=== PATIENT | female | born 1955 | race Caucasian/White ===

== ENCOUNTER → 2020-04-20 13:51 | Outpatient (BNVA) | payer SELFPAY | PROVIDERS: Visit Provider Nurse Practitioner Family | DX: Z20.822 Contact with and (suspected) exposure to COVID-19 (principal) | CPT/HCPCS: 87635 ==

== ENCOUNTER → 2020-12-21 13:30 | Outpatient (BNVA) | payer OTHER, SELFPAY | PROVIDERS: Visit Provider Nurse Practitioner Family | DX: Z20.822 Contact with and (suspected) exposure to COVID-19 (principal) | CPT/HCPCS: 87426 ==

== ENCOUNTER → 2021-04-06 08:23 | Outpatient (BNVA) | payer MEDICARE, SELFPAY | PROVIDERS: Visit Provider Internal Medicine Rheumatology | DX: M06.9 Rheumatoid arthritis, unspecified (principal); M32.9 Systemic lupus erythematosus, unspecified; Z79.899 Other long term (current) drug therapy; Z71.85 Encounter for immunization safety counseling | CPT/HCPCS: 99204 ==

== ENCOUNTER 2021-04-29 14:50 | Outpatient (CLI) | payer MEDICARE, SELFPAY ==
--- NOTE | 2021-04-29 14:58 | MM_ITS ---
WS: [id number] BILATERAL DIGITAL SCREENING MAMMOGRAPHY WITH CAD CLINICAL INFORMATION: SCREENING HISTORY: Screening mammogram. No current complaints. COMPARISON: TECHNIQUE: Bilateral CC and MLO views. FINDINGS: Scattered fibroglandular densities bilaterally. Vascular calcifications. No suspicious focal mass, as ymmetry, calcifications, or architectural distortion. No evidence of malignancy. MM/[place] [id number] IMPRESSION: BI-RADS: 2-Benign FOLLOW UP: 1 Year Follow-up Recommend return to annual screening mammography.
== END 2021-04-29 14:51 | disposition home or self-care (01) ==
PROVIDERS: Visit Provider Family Medicine
DX: Z12.31 Encounter for screening mammogram for malignant neoplasm of breast (principal)
CPT/HCPCS: 77067

== ENCOUNTER → 2021-07-15 10:29 | Outpatient (BNVA) | payer MEDICARE, SELFPAY | PROVIDERS: Visit Provider Internal Medicine Rheumatology | DX: M05.79 Rheumatoid arthritis with rheumatoid factor of multiple sites without organ or systems involvement (principal); Z79.899 Other long term (current) drug therapy; L93.2 Other local lupus erythematosus; R76.8 Other specified abnormal immunological findings in serum; Z11.59 Encounter for screening for other viral diseases; Z71.85 Encounter for immunization safety counseling; Z11.1 Encounter for screening for respiratory tuberculosis | CPT/HCPCS: 99214 ==

== ENCOUNTER → 2021-07-15 11:51 | Outpatient (BNVA) | payer MEDICARE, SELFPAY | PROVIDERS: Visit Provider Internal Medicine Rheumatology | DX: M05.79 Rheumatoid arthritis with rheumatoid factor of multiple sites without organ or systems involvement (principal); Z79.899 Other long term (current) drug therapy; L93.2 Other local lupus erythematosus; R76.8 Other specified abnormal immunological findings in serum; Z11.59 Encounter for screening for other viral diseases; Z71.85 Encounter for immunization safety counseling | CPT/HCPCS: 80076; 81001; 82565; 82570; 84156; 85025; 85651; 86140; 86160; 86162; 86200; 86235; 86255; 86376; 86431; 86480; 86704; 86803; 87340; 99214 ==

== ENCOUNTER → 2021-10-20 12:45 | Outpatient (BNVA) | payer MEDICARE, SELFPAY | PROVIDERS: Visit Provider Internal Medicine Rheumatology | DX: M19.90 Unspecified osteoarthritis, unspecified site (principal); Z79.899 Other long term (current) drug therapy; Z71.85 Encounter for immunization safety counseling; R76.8 Other specified abnormal immunological findings in serum | CPT/HCPCS: 99214 ==

== ENCOUNTER 2021-10-21 09:31 | Outpatient (CLI) | payer MEDICARE, SELFPAY ==
[2021-10-21 10:13] LABS: Eosinophils # 0.2 10^3/uL (0.0-0.8); Eosinophils % 3.6 %; Hemoglobin 12.8 g/dL (11.5-15.3); Lymphocytes # 1.4 10^3/uL (0.8-4.8); Lymphocytes % 33.2 %; Mean Corpuscular HGB Conc 31.2 g/dL (30.0-36.0); Mean Corpuscular Hemoglobin 29.4 pg (28.0-34.0); Mean Platelet Volume 10.2 fL (7.4-10.4); Monocytes # 0.4 10^3/uL (0.2-0.9); Monocytes % 10.3 %; Neutrophils # 2.14 10^3/uL (1.8-7.7); Neutrophils % 51.4 %; Nucleated Red Blood Cells % 0 %; Platelet Count 186 10^3/cmm (130-400); Red Blood Count 4.36 10^6/uL (4.1-5.3); Red Cell Distribution Width 13.2 % (12.1-15.1); White Blood Count 4.2 10^3/uL (4.0-10.0)
[2021-10-21 10:44] LABS: Alanine Aminotransferase 13 U/L (0-33); Albumin Level 4.1 g/dL (3.5-5.2); Alkaline Phosphatase 89 U/L (35-105); Aspartate Amino Transferase 17 U/L (0-32); C Reactive Protein 4.3 mg/L (0.0-4.9); Globulin 2.5 g/dL (1.3-4.6); Glomerular Filtration Rate 55.6 mL/min (90-130); Total Bilirubin 0.3 mg/dL (0.15-1.2); Total Protein 6.6 g/dL (6.6-8.7)
== END 2021-10-21 09:32 | disposition home or self-care (01) ==
LOC: LAB 09:33
PROVIDERS: Visit Provider Internal Medicine Rheumatology
DX: M05.79 Rheumatoid arthritis with rheumatoid factor of multiple sites without organ or systems involvement (principal); Z79.899 Other long term (current) drug therapy
CPT/HCPCS: 36415; 80076; 82565; 85025; 86140

== ENCOUNTER 2021-12-08 12:04 | Emergency (ER) | payer MEDICARE, SELFPAY ==
--- NOTE | 2021-12-08 12:13 | ECG_ITS ---
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 Measurements Intervals [place] Rate: 69 P: 43 DE: 150 QRS: -14 QRSD: 98 T: 11 QT: 382 QTc: 410 Interpretive Statements SINUS RHYTHM POSSIBLE LEFT ATRIAL ENLARGEMENT [-0.1mV P-WAVE IN V1/V2] INCOMPLETE RIGHT BUNDLE BRANCH BLOCK No previous ECG available for comparison Electronically Signed On 12-09-2021 12:56:07 CDT by Devorah Boogie M.D. [id number]
[2021-12-08 12:18] VITALS: BP 137/90; PULSE 71; RESP 20; TEMP 36.6; O2SAT 96; BMI 30.5
--- NOTE | 2021-12-08 12:38 | XR_ITS ---
WS: [id number] PORTABLE CHEST HISTORY: chest pain COMPARISON: None available. Lungs are clear and well expanded. No pleural effusion or pneumothorax. Cardiac size: Normal. Mediastinum/Aorta: Normal mediastinum. No osseous abnormality seen. XR/XR chest 1V portable [id number] IMPRESSION: Unremarkable portable chest.
--- NOTE | 2021-12-08 12:40 | W.ED.CHESTPA ---
HPI - Chest Pain General: Chief Complaint: Chest Pain Stated Complaint: Chest pains, N/V Time Seen by Provider: 12/08/21 12:33 Source: patient Mode of arrival: ambulatory History of Present Illness: 66 female who presents tot [facility] ER with complaints of L sided chest and shoulder pain worse with movement and palpation. Nausea and vomitting. Not associated with exertion. No hx of CAD. Pt does ahve a hx of lupus. MD complaint: chest pain Onset (ago): day(s) (3) Timing of current episode: episodic Prior episodes: Yes Pain radiation: none Severity: moderate Quality: sharp Relieving factors: rest Exacerbating factors: palpation and movement Associated symptoms: Deny abdominal pain, diaphoresis, dyspnea, fever(s), leg edema, nausea, palpitations, sense of impending doom, syncope or vomiting Treatment prior to arrival: none Review of Systems Const: Denies: fever(s) or diaphoresis Card: Denies: palpitations or syncope Resp: Denies: dyspnea GI: Denies: abdominal pain, nausea or vomiting PFSH ED PFSH: Medical History (Updated 12/08/21 @ 16:41 by Tushar Mercedes DO) Cutaneous lupus erythematosus prior Hx? 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 Surgical History History of bilateral knee replacement History of hysterectomy still has 1 ovary History of tonsillectomy Family History Other CAD (coronary artery disease) Cancer Chronic kidney disease (CKD) Diabetes Family history of premature coronary artery disease Hypertension Lung disease Lupus Rheumatoid arthritis Denies family history of Stroke Social History Smoking and tobacco status: never smoked Alcohol intake: never Course Vital Signs: Vital signs: Vital Signs Temperature 98 F 12/08/21 12:18 Pulse Rate 71 12/08/21 12:18 Respiratory Rate 16 12/08/21 13:24 Blood Pressure 137/90 12/08/21 12:18 Pulse Oximetry 96 12/08/21 12:18 Oxygen Delivery Me thod 12/08/21 12:18 MDM - Chest Pain Medical Decision Making EKG and cardiac enzymes negative. Hold prednisone 5 mg daily prednisone burst taper. Follow up with your PCP in 1 wk if not improving. Medical Records I reviewed the patient's medical records. Lab Data I reviewed the patient's lab results. : 12/08/21 13:13 12/08/21 13:13 Radiology Impressions Chest X-Ray 12/08/21 12:38 IMPRESSION: Unremarkable portable chest. Laboratory Results WBC 5.6 10^3/uL (4.0-10.0) 12/08/21 13:13 RBC 4.66 10^6/uL (4.1-5.3) 12/08/21 13:13 Hgb 13.7 g/dL (11.5-15.3) 12/08/21 13:13 Hct 41.4 % (37.0-47.0) 12/08/21 13:13 MCV 88.8 fl (81-99) 12/08/21 13:13 MCH 29.4 pg (28.0-34.0) 12/08/21 13:13 MCHC 33.1 g/dL (30.0-36.0) 12/08/21 13:13 RDW 13.3 % (12.1-15.1) 12/08/21 13:13 Plt Count 182 10^3/cmm (130-400) 12/08/21 13:13 MPV 10.1 fL (7.4-10.4) 12/08/21 13:13 Neut % (Auto) 78.1 % 12/08/21 13:13 Lymph % (Auto) 12.6 % 12/08/21 13:13 [place] % (Auto) 7.5 % 12/08/21 13:13 Eos % (Auto) 0.7 % 12/08/21 13:13 Baso % (Auto) 0.4 % 12/08/21 13:13 Neut # (Auto) 4.35 10^3/uL (1.8-7.7) 12/08/21 13:13 Lymph # (Auto) 0.7 10^3/uL (0.8-4.8) L 12/08/21 13:13 [place] # (Auto) 0.4 10^3/uL (0.2-0.9) 12/08/21 13:13 Eos # (Auto) 0.0 10^3/uL (0.0-0.8) 12/08/21 13:13 Baso # (Auto) 0.0 10^3/uL (0.0-0.1) 12/08/21 13:13 Nucleated RBC % (auto) 0 % 12/08/21 13:13 Nucleated RBCs # 0.0 /100WBC 12/08/21 13:13 Sodium 136 mmol/L (136-145) 12/08/21 13:13 Potassium 3.3 mmol/L (3.5-5.1) L 12/08/21 13:13 Chloride 97 mmol/L (98-107) L 12/08/21 13:13 Carbon Dioxide 26 mmol/L (22-29) 12/08/21 13:13 Anion Gap 16.3 (5-19) 12/08/21 13:13 BUN 18 mg/dL (8-23) 12/08/21 13:13 Creatinine 1.2 mg/dL (0.5-0.9) H 12/08/21 13:13 GFR Calculation 45.1 mL/min (90-130) L 12/08/21 13:13 Glucose 100 mg/dL (65-115) 12/08/21 13:13 Calculated Osmolality 284 mOsm/kg (285-295) L 12/08/21 13:13 Calcium 9.2 mg/dL (8.5-10.5) 12/08/21 13:13 Total Bilirubin 0.4 mg/dL (0.15-1.2) 12/08/21 13:13 AST 28 U/L (0-32) 12/08/21 13:13 ALT 25 U/L (0-33) 12/08/21 13:13 Alkaline Phosphatase 78 U/L (35-105) 12/08/21 13:13 Troponin T Baseline 8 ng/L (0-10) 12/08/21 13:13 Troponin T 120 Minute 6.00 ng/L (0-10) 12/08/21 15:22 Total Protein 7.2 g/dL (6.6-8.7) 12/08/21 13:13 Albumin 4.3 g/dL (3.5-5.2) 12/08/21 13:13 Globulin 2.9 g/dL (1.3-4.6) 12/08/21 13:13 Discharge Plan Discharge Patient Disposition: Home Clinical Impression: Seropositive rheumatoid arthritis of multiple sites Condition: Stable Prescriptions: New prednisone 20 mg tablet 20 mg PO TID Qty: 15 0RF Rx Instructions: 1 p.o. 3 times daily x3 days, 1 p.o. twice daily x2 days, 1 p.o. daily x2 days Held prednisone 5 mg tablet See Rx Instructions .ROUTE .COMPLEX Qty: 60 1RF Hold Instructions: Resume on 12/16/21. Dose Instruction: TAKE 1 TO 2 TABLETS BY MOUTH DAILY FOR 5 TO 7 DAYS NEEDED FOR JOINT PAIN OR FLARE Rx Instructions: TAKE 1 TO 2 TABLETS BY MOUTH DAILY FOR 5 TO 7 DAYS NEEDED FOR JOINT PAIN OR FLARE No Action lisinopril 10 mg tablet 10 - 20 mg PO DAILY aspirin [Adult Aspirin Regimen] 81 mg tablet,delayed release (DR/EC) 81 mg PO DAILY sertraline 25 mg tablet 25 mg PO DAILY ibuprofen 800 mg tablet 800 mg PO TID PRN (Reason: Pain) prednisone 20 mg tablet See Rx Instructions PO .COMPLEX PRN (Reason: joint pain flare) Qty: 30 1RF Rx Instructions: take 1 daily for 3-7 days PRN joint pain flare PO PRN; triamterene-hydrochlorothiazid 75-50 mg Tablet 1 tab PO DAILY albuterol sulfate 90 mcg/actuation Hfa Aerosol Inhaler 2 puff INHALATION Q4H PRN (Reason: Shortness Of Breath) leflunomide 10 mg tablet 10 mg PO DAILY Discharge Orders: Discharge ED (Routine); Ordered 12/08/21 Ordered By: Tushar Mercedes Discharge Diet: Usual diet Discharge Activity: Increase activity as tolerated Patient Instructions: Opioid Safety, Pain Management Activity Restrictions/Additional Instructions: Hold prednisone 5 mg daily and take the prednisone burst and taper and then resume prednisone of 5 mg daily. 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
[2021-12-08 13:21] LABS: Basophils % 0.4 %; Eosinophils % 0.7 %; Hematocrit 41.4 % (37.0-47.0); Hemoglobin 13.7 g/dL (11.5-15.3); Lymphocytes # 0.7 10^3/uL (0.8-4.8); Lymphocytes % 12.6 %; Mean Corpuscular HGB Conc 33.1 g/dL (30.0-36.0); Mean Corpuscular Hemoglobin 29.4 pg (28.0-34.0); Mean Corpuscular Volume 88.8 fl (81-99); Mean Platelet Volume 10.1 fL (7.4-10.4); Monocytes # 0.4 10^3/uL (0.2-0.9); Monocytes % 7.5 %; Neutrophils # 4.35 10^3/uL (1.8-7.7); Neutrophils % 78.1 %; Nucleated Red Blood Cells % 0 %; Platelet Count 182 10^3/cmm (130-400); Red Blood Count 4.66 10^6/uL (4.1-5.3); Red Cell Distribution Width 13.3 % (12.1-15.1); White Blood Count 5.6 10^3/uL (4.0-10.0)
[2021-12-08] MEDS: dexamethasone 10 mg/mL INJ IM (13:23)
[2021-12-08 13:24] VITALS: RESP 16
[2021-12-08] MEDS: morphine 4 mg/mL SDV 1 mL IVP (13:24)
[2021-12-08 13:44] LABS: Alanine Aminotransferase 25 U/L (0-33); Albumin Level 4.3 g/dL (3.5-5.2); Alkaline Phosphatase 78 U/L (35-105); Anion Gap 16.3 (5-19); Aspartate Amino Transferase 28 U/L (0-32); Blood Urea Nitrogen 18 mg/dL (8-23); Calcium 9.2 mg/dL (8.5-10.5); Carbon Dioxide 26 mmol/L (22-29); Chloride 97 mmol/L (98-107); Globulin 2.9 g/dL (1.3-4.6); Glomerular Filtration Rate 45.1 mL/min (90-130); Glucose 100 mg/dL (65-115); Osmolality Calculated 284 mOsm/kg (285-295); Potassium 3.3 mmol/L (3.5-5.1); Sodium 136 mmol/L (136-145); Total Bilirubin 0.4 mg/dL (0.15-1.2); Total Protein 7.2 g/dL (6.6-8.7)
[2021-12-08 13:46] LABS: Troponin(5th) Baseline 8 ng/L (0-10)
[2021-12-08 14:37] VITALS: BP 139/89; PULSE 87; RESP 16
[2021-12-08 15:52] VITALS: BP 124/62
--- NOTE | 2021-12-08 16:13 | ECG_ITS ---
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 Measurements Intervals [place] Rate: 58 P: 48 NM: 160 QRS: -3 QRSD: 105 T: 34 QT: 434 QTc: 427 Interpretive Statements SINUS BRADYCARDIA INCOMPLETE RIGHT BUNDLE BRANCH BLOCK [90+ ms QRS DURATION, TERMINAL R IN V1/V2, 40+ ms S IN I/aVL/V4/V5/V6] Compared to ECG 12/08/2021 12:13:24 Sinus rhythm no longer present Electronically Signed On 12-09-2021 13:00:33 CDT by Devorah Boogie M.D. [id number]
[2021-12-08 16:52] VITALS: BP 120/58
[2021-12-08 17:05] VITALS: BP 122/70; PULSE 87
== END 2021-12-08 17:07 | disposition home or self-care (01) ==
PROVIDERS: Emergency Provider Family Medicine
DX: M05.9 Rheumatoid arthritis with rheumatoid factor, unspecified (principal); Z79.82 Long term (current) use of aspirin; L93.2 Other local lupus erythematosus
CPT/HCPCS: 36415; 71045; 80053; 84484; 85025; 93005; 96372; 96374; 99285; J1100; J2270

== ENCOUNTER → 2021-12-29 14:53 | Outpatient (BNVA) | payer MEDICARE, SELFPAY | PROVIDERS: PCP Family Medicine; Visit Provider Internal Medicine Rheumatology | DX: N39.0 Urinary tract infection, site not specified (principal); M05.79 Rheumatoid arthritis with rheumatoid factor of multiple sites without organ or systems involvement; Z79.899 Other long term (current) drug therapy; L93.2 Other local lupus erythematosus; R76.8 Other specified abnormal immunological findings in serum; Z71.85 Encounter for immunization safety counseling | CPT/HCPCS: 36415; 81001; 82565; 84132; 87077; 87086; 87186 ==

== ENCOUNTER 2022-04-08 15:21 | Outpatient (CLI) | payer MEDICARE, SELFPAY ==
--- NOTE | 2022-04-08 15:43 | XR_ITS ---
WS: [id number] XR knee LT 3V* [id number] REASON FOR EXAM: KNEE JOINT PAIN FINDINGS: Left knee arthroplasty. Femoral and tibial components of the prosthesis are in proper position and alignment. No findings for fracture, infection, or loosening. XR/XR knee LT 3V* [id number] IMPRESSION: Left knee arthroplasty without abnormality.
== END 2022-04-08 15:22 | disposition home or self-care (01) ==
LOC: RAD 15:30
PROVIDERS: PCP Family Medicine; Visit Provider Family Medicine
DX: M25.562 Pain in left knee (principal); Z96.652 Presence of left artificial knee joint
CPT/HCPCS: 73562

== ENCOUNTER → 2022-04-20 12:56 | Outpatient (BNVA) | payer MEDICARE, SELFPAY | PROVIDERS: PCP Family Medicine; Visit Provider Internal Medicine Rheumatology | DX: M05.79 Rheumatoid arthritis with rheumatoid factor of multiple sites without organ or systems involvement (principal); L93.2 Other local lupus erythematosus; Z79.899 Other long term (current) drug therapy; Z71.85 Encounter for immunization safety counseling; R76.8 Other specified abnormal immunological findings in serum; N39.0 Urinary tract infection, site not specified | CPT/HCPCS: 36415; 80076; 82565; 85025; 86140; 99214 ==

== ENCOUNTER 2022-04-26 14:07 | Emergency (ER) | payer MEDICARE, SELFPAY ==
[2022-04-26] VITALS (9 sets, daily range): BP systolic 114–139; BP diastolic 77–101; PULSE 75–94; RESP 13–22; TEMP 37.1; O2SAT 91–98; BMI 30.2
--- NOTE | 2022-04-26 14:37 | XR_ITS ---
WS: [id number] Portable AP upright chest, 04/26/2022 Clinical Data: dyspnea/cough Comparison: Portable chest, 12/08/2021 Findings: No nodules, masses or effusions are seen. The heart is normal. The pulmonary vascularity is not increased. No pneumonia or pneumothorax is seen. The aortic arch and descending thoracic aorta s how tortuosity. There are monitor leads on the chest wall. The patient's clothing obscure is minimal detail. XR/XR chest 1V portable [id number] Impression: Atherosclerosis.
--- NOTE | 2022-04-26 14:48 | ED_ITS ---
HPI - SOB/Dyspnea General: Chief Complaint: Shortness of Breath/Dyspnea Stated Complaint: SOB Time Seen by Provider: 04/26/22 14:36 Source: patient Mode of arrival: ambulatory History of Present Illness: HPI Narrative: 67-year-old female presents emergency room complaining of shortness of breath. Patient is concerned the methotrexate she is taking is giving her more difficulty with breathing. She is currently on prednisone he has a history of COPD. On arrival she is 99% on room air. As audible expiratory wheezing and some stridor. MD elicited complaint: shortness of breath and cough Onset (ago): hour(s) Timing: constant Severity: mild Exacerbating factors: nothing Relieving factors: nothing Associated symptoms: Reports cough; Deny abdominal pain, chest congestion, chest pain, diaphoresis, dizziness, extremity pain, fever(s), hemoptysis, lightheadedness, myalgias, nausea, orthopnea, palpitations, paresthesias, polydipsia, polyuria, rash, sense of impending doom, syncope or vomiting Review of Systems Const: Denies: fever(s), chills, fatigue, malaise or diaphoresis ENMT: Denies: throat pain, ear or mastoid pain, nasal discharge or nasal congestion Card: Denies: chest pain, palpitations, lightheadedness, syncope or orthopnea Resp: Reports: dyspnea, non-productive cough, wheezing and stridor; Denies: hemoptysis or chest congestion GI: Denies: abdominal pain, nausea or vomiting : Denies: flank pain, difficulty voiding, dysuria, urinary frequency or urinary urgency Musc: Denies: extremity pain Skin/Breast: Denies: rash or pruritus Neuro: Denies: dizziness Endo: Denies: polyuria or polydipsia PFSH ED PFSH: Medical History Cutaneous lupus erythematosus prior Hx? 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 UTI (urinary tract infection) Surgical History History of bilateral knee replacement History of hysterectomy still has 1 ovary History of tonsillectomy Family History Other CAD (coronary artery disease) Cancer Chronic kidney disease (CKD) Diabetes Family history of premature coronary artery disease Hypertension Lung disease Lupus Rheumatoid arthritis Denies family history of Stroke Social History Smoking and tobacco status: never smoked Alcohol intake: never Physical Exam Const: GENERAL APPEARANCE: cooperative and comfortable ORIENTATION/CONSCIOUSNESS: Yes awake, Yes oriented to person, Yes oriented to place and Yes oriented to time HENMT: COMMON NORMALS: normocephalic, atraumatic and hearing grossly normal bilaterally HEAD & SCALP: normocephalic and atraumatic Resp: COMMON NORMALS: normal respiratory effort, No retractions and No use of accessory muscles AUSCULTATION: wheezes Cardio: COMMON NORMALS: regular rate, regular rhythm and No murmurs present (Cardio) RATE: regular rate RHYTHM: regular rhythm GI: COMMON NORMALS: Soft to palpation and No hepatosplenomegaly present AUSCULTATION: Yes normoactive bowel sounds PALPATION: Yes Soft to palpation, No Tenderness to palpation present (GI), No Guarding due to palpation present (GI) and Yes No hepatosplenomegaly present Extremity: COMMON NORMALS: normal to inspection, capillary refill normal, no clubbing, cyanosis or edema, no calf tenderness and no pedal edema Neuro: SENSORIUM/ORIENTATION: Yes oriented to person, Yes oriented to place and Yes oriented to time Skin: COMMON NORMALS: no rashes or lesions noted GENERAL SKIN EXAM: no rashes or lesions noted Course Vital Signs: Vital signs: Vital Signs Temperature 98.7 F 04/26/22 14:14 Pulse Rate 79 04/26/22 17:35 Respiratory Rate 21 H 04/26/22 17:35 Blood Pressure 136/99 04/26/22 17:35 Pulse Oximetry 95 04/26/22 17:35 Oxygen Delivery Me thod 04/26/22 17:00 MDM - SOB/Dyspnea Medical Decision Making Improved after nebulizer treatments. We will hold her current prednisone put her on a prednisone taper starting tomorrow and then in 1 week when she finishes the [place] is on taper at the end of this taper resume her previous prednisone course. Labs imaging and EKG reviewed with the patient no acute changes are noted no acute ST changes. No significant findings on the chest x-ray there is no pneumonia masses effusions or pneumothorax. Continue to use albuterol if not improving recheck or follow-up with primary care. 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 Medical Records I reviewed the patient's medical records. Lab Data I reviewed the patient's lab results. 04/26/22 15:05 04/26/22 15:05 Labs/Radiology: Radiology Impressions Chest X-Ray 04/26/22 14:37 Impression: Atherosclerosis. Laboratory Results WBC 6.1 10^3/uL (4.0-10.0) 04/26/22 15:05 RBC 5.17 10^6/uL (4.1-5.3) 04/26/22 15:05 Hgb 14.8 g/dL (11.5-15.3) 04/26/22 15:05 Hct 45.5 % (37.0-47.0) 04/26/22 15:05 MCV 88.0 fl (81-99) 04/26/22 15:05 MCH 28.6 pg (28.0-34.0) 04/26/22 15:05 MCHC 32.5 g/dL (30.0-36.0) 04/26/22 15:05 RDW 13.6 % (12.1-15.1) 04/26/22 15:05 Plt Count 220 10^3/cmm (130-400) 04/26/22 15:05 MPV 10.2 fL (7.4-10.4) 04/26/22 15:05 Neut % (Auto) 79.9 % 04/26/22 15:05 Lymph % (Auto) 11.7 % 04/26/22 15:05 [place] % (Auto) 3.9 % 04/26/22 15:05 Eos % (Auto) 3.3 % 04/26/22 15:05 Baso % (Auto) 0.5 % 04/26/22 15:05 Neut # (Auto) 4.90 10^3/uL (1.8-7.7) 04/26/22 15:05 Lymph # (Auto) 0.7 10^3/uL (0.8-4.8) L 04/26/22 15:05 [place] # (Auto) 0.2 10^3/uL (0.2-0.9) 04/26/22 15:05 Eos # (Auto) 0.2 10^3/uL (0.0-0.8) 04/26/22 15:05 Baso # (Auto) 0.0 10^3/uL (0.0-0.1) 04/26/22 15:05 Nucleated RBC % (auto) 0 % 04/26/22 15:05 Nucleated RBCs # 0.0 /100WBC 04/26/22 15:05 Sodium 135 mmol/L (136-145) L 04/26/22 15:05 Potassium 4.3 mmol/L (3.5-5.1) 04/26/22 15:05 Chloride 99 mmol/L (98-107) 04/26/22 15:05 Carbon Dioxide 24 mmol/L (22-29) 04/26/22 15:05 Anion Gap 16.3 (5-19) 04/26/22 15:05 BUN 20 mg/dL (8-23) 04/26/22 15:05 Creatinine 1.1 mg/dL (0.5-0.9) H 04/26/22 15:05 GFR Calculation 49.7 mL/min (90-130) L 04/26/22 15:05 Glucose 116 mg/dL (65-115) H 04/26/22 15:05 Calculated Osmolality 284 mOsm/kg (285-295) L 04/26/22 15:05 Calcium 9.5 mg/dL (8.5-10.5) 04/26/22 15:05 Total Bilirubin 0.2 mg/dL (0.15-1.2) 04/26/22 15:05 AST 15 U/L (0-32) 04/26/22 15:05 ALT 14 U/L (0-33) 04/26/22 15:05 Alkaline Phosphatase 92 U/L (35-105) 04/26/22 15:05 Total Protein 7.3 g/dL (6.6-8.7) 04/26/22 15:05 Albumin 4.2 g/dL (3.5-5.2) 04/26/22 15:05 Globulin 3.1 g/dL (1.3-4.6) 04/26/22 15:05 Urine Color Yellow (Yellow) 04/26/22 16:20 Urine Appearance Clear (CLEAR) 04/26/22 16:20 Urine pH 7 (5-7) 04/26/22 16:20 Ur Specific [place] 1.010 (1.005-1.030) 04/26/22 16:20 Urine Protein Neg (Negative) 04/26/22 16:20 Urine Glucose (UA) Norm (Normal) 04/26/22 16:20 Urine Ketones Negative (Negative) 04/26/22 16:20 Urine Blood 2+ (Negative) H 04/26/22 16:20 Urine Nitrate Negative (Negative) 04/26/22 16:20 Urine Bilirubin Neg (Negative) 04/26/22 16:20 Urine Urobilinogen Neg mg/dL (Negative) 04/26/22 16:20 Ur Leukocyte Esterase Negative (Negative) 04/26/22 16:20 Urine RBC 0-4 /hpf (0-2) H 04/26/22 16:20 Urine WBC None /hpf (0-5) 04/26/22 16:20 Ur Squamous Epith Cells None /hpf (0-5) 04/26/22 16:20 Amorphous Sediment Not Reportable 04/26/22 16:20 Urine Bacteria None /hpf (NONE) 04/26/22 16:20 Discharge Plan Discharge Patient Disposition: Home Clinical Impression: Medication reaction Condition: Stable Prescriptions: New albuterol sulfate 90 mcg/actuation HFA aerosol inhaler 2 inh INHALATION Q4H PRN (Reason: shortness of breath or wheezing) Qty: 18 0RF Held prednisone 10 mg tablet See Rx Instructions PO .COMPLEX Qty: 90 1RF Hold Instructions: Resume on 05/02/22. Rx Instructions: 3 tabs daily x3days, then 2 tabs daily x3days, 1.5 tab daily x3 days then stay on 1 tab daily til next appt. orally; No Action lisinopril 10 mg tablet 10 - 20 mg PO DAILY aspirin [Adult Aspirin Regimen] 81 mg tablet,delayed release (DR/EC) 81 mg PO DAILY sertraline 25 mg tablet 25 mg PO DAILY ibuprofen 800 mg tablet 800 mg PO TID PRN (Reason: Pain) prednisone 20 mg tablet See Rx Instructions PO .COMPLEX PRN (Reason: joint pain flare) Qty: 30 1RF Rx Instructions: take 1 daily for 3-7 days PRN joint pain flare PO PRN; prednisone 5 mg tablet See Rx Instructions .ROUTE .COMPLEX Qty: 60 1RF Hold Instructions: Resume on 12/16/21. Dose Instruction: TAKE 1 TO 2 TABLETS BY MOUTH DAILY FOR 5 TO 7 DAYS NEEDED FOR JOINT PAIN OR FLARE Rx Instructions: TAKE 1 TO 2 TABLETS BY MOUTH DAILY FOR 5 TO 7 DAYS NEEDED FOR JOINT PAIN OR FLARE nitrofurantoin monohyd/m-cryst [Macrobid] 100 mg capsule 100 mg PO BID 7 Days Qty: 14 0RF Rx Instructions: must administer with a meal/food omeprazole 40 mg capsule,delayed release(DR/EC) See Rx Instructions .ROUTE .COMPLEX Qty: 90 0RF Dose Instruction: TAKE 1 CAPSULE BY MOUTH DAILY Rx Instructions: TAKE 1 CAPSULE BY MOUTH DAILY folic acid 1 mg tablet See Rx Instructions .ROUTE .COMPLEX Qty: 90 0RF Dose Instruction: TAKE 1 TABLET BY MOUTH DAILY Rx Instructions: TAKE 1 TABLET BY MOUTH DAILY triamterene-hydrochlorothiazid 75-50 mg Tablet 1 tab PO DAILY albuterol sulfate 90 mcg/actuation Hfa Aerosol Inhaler 2 puff INHALATION Q4H PRN (Reason: Shortness Of Breath) prednisone 20 mg tablet 20 mg PO TID Qty: 15 0RF Rx Instructions: 1 p.o. 3 times daily x3 days, 1 p.o. twice daily x2 days, 1 p.o. daily x2 days Discharge Orders: Discharge ED (Routine); Ordered 04/26/22 Ordered By: Tushar Mercedes Referrals: Herbert Pham MD [Primary Care Provider] - Patient Instructions: Opioid Safety, Pain Management Activity Restrictions/Additional Instructions: You are seen today for difficulty breathing. With the steroids and albuterol your breathing improved. Recommend you continue the steroid taper you were given here and then resume the 1 you have been on and 5 days after we complete the 1 you have today. Additionally use albuterol as needed. Take Benadryl 25 to 50 mg every 6-8 hours for the next 3 days. Return if you have further problems breathing. 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
[2022-04-26] MEDS: ipratropium-albuterol 3 mL Neb INHALATION ×2 (15:06→15:08)
[2022-04-26] MEDS: diphenhydrAMINE 50 mg/mL SDV 1mL IVP (15:10)
[2022-04-26 15:17] LABS: Basophils % 0.5 %; Eosinophils # 0.2 10^3/uL (0.0-0.8); Eosinophils % 3.3 %; Hematocrit 45.5 % (37.0-47.0); Hemoglobin 14.8 g/dL (11.5-15.3); Lymphocytes # 0.7 10^3/uL (0.8-4.8); Lymphocytes % 11.7 %; Mean Corpuscular HGB Conc 32.5 g/dL (30.0-36.0); Mean Corpuscular Hemoglobin 28.6 pg (28.0-34.0); Mean Platelet Volume 10.2 fL (7.4-10.4); Monocytes # 0.2 10^3/uL (0.2-0.9); Monocytes % 3.9 %; Neutrophils % 79.9 %; Nucleated Red Blood Cells % 0 %; Platelet Count 220 10^3/cmm (130-400); Red Blood Count 5.17 10^6/uL (4.1-5.3); Red Cell Distribution Width 13.6 % (12.1-15.1); White Blood Count 6.1 10^3/uL (4.0-10.0)
--- NOTE | 2022-04-26 15:19 | ECG_ITS ---
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 Measurements Intervals [place] Rate: 93 P: 61 DC: 135 QRS: 19 QRSD: 94 T: 62 QT: 364 QTc: 453 Interpretive Statements SINUS RHYTHM POSSIBLE LEFT ATRIAL ENLARGEMENT [-0.1mV P-WAVE IN V1/V2] INCOMPLETE RIGHT BUNDLE BRANCH BLOCK [90+ ms QRS DURATION, TERMINAL R IN V1/V2, 40+ ms S IN I/aVL/V4/V5/V6] Compared to ECG 12/08/2021 16:13:20 Sinus bradycardia no longer present Electronically Signed On 04-27-2022 14:11:03 SCENIC ARTIST by Karlie Dinh M.D. [id number]
[2022-04-26 15:39] LABS: Alanine Aminotransferase 14 U/L (0-33); Albumin Level 4.2 g/dL (3.5-5.2); Alkaline Phosphatase 92 U/L (35-105); Anion Gap 16.3 (5-19); Aspartate Amino Transferase 15 U/L (0-32); Blood Urea Nitrogen 20 mg/dL (8-23); Calcium 9.5 mg/dL (8.5-10.5); Carbon Dioxide 24 mmol/L (22-29); Chloride 99 mmol/L (98-107); Globulin 3.1 g/dL (1.3-4.6); Glomerular Filtration Rate 49.7 mL/min (90-130); Glucose 116 mg/dL (65-115); Osmolality Calculated 284 mOsm/kg (285-295); Potassium 4.3 mmol/L (3.5-5.1); Sodium 135 mmol/L (136-145); Total Bilirubin 0.2 mg/dL (0.15-1.2); Total Protein 7.3 g/dL (6.6-8.7)
[2022-04-26 17:01] LABS: Add Urine Culture? No; Add Urine Microscopic? YES; Bilirubin Urine Neg (Negative); Blood Urine 2+ (Negative); Glucose Urine UA Norm (Normal); Ketones Urine Negative (Negative); Leukocyte Esterase Urine Negative (Negative); Nitrate Urine Negative (Negative); Protein Urine Neg (Negative); RBC Urine 0-4 /hpf (0-2); Urine Appearance Clear (CLEAR); Urine Color Yellow (Yellow); Urobilinogen Urine Neg (Negative); pH Urine 7 (5-7)
== END 2022-04-26 17:36 | disposition home or self-care (01) ==
PROVIDERS: Emergency Provider Family Medicine; PCP Family Medicine
DX: T88.7XXA Unspecified adverse effect of drug or medicament, initial encounter (principal); T45.1X5A Adverse effect of antineoplastic and immunosuppressive drugs, initial encounter; Z79.82 Long term (current) use of aspirin; L93.2 Other local lupus erythematosus; J44.9 Chronic obstructive pulmonary disease, unspecified
CPT/HCPCS: 71045; 80053; 81001; 85025; 93005; 94640; 96374; 96375; 99285; J1200; J2930

== ENCOUNTER 2022-04-28 13:58 | Emergency (ER) | payer MEDICARE, SELFPAY ==
[2022-04-28] VITALS (63 sets, daily range): BP systolic 122–161; BP diastolic 85–116; PULSE 69–104; RESP 10–37; TEMP 36.7; O2SAT 87–96
--- NOTE | 2022-04-28 17:03 | W.ED.ALLEREA ---
Documented by User: Steffenquique ManzoDO 04/28/22 19:28 HPI - Allergic Reaction General: Chief complaint: Shortness of Breath/Dyspnea Stated complaint: SOB, cough Time Seen by Provider: 04/28/22 16:36 Source: patient and family Mode of arrival: ambulatory Limitations: no limitations History of Present Illness: HPI narrative: This patient returns to the emergency department. She apparently has had some difficulty breathing today. This apparently is similar to an occurrence she had yesterday. She thinks that it may be related to her methotrexate. She apparently has had reactions to previous rheumatological medications. She took a dose of methotrexate last week. She denies history of asthma, COPD. She does not smoke. She denies any other new or changing medication. She states she has been wheezing today despite using the metered-dose inhaler. She has not had any abdominal pain vomiting diarrhea skin rash etc. No other potential environmental or other exposures to allergens. Associated symptoms: Deny facial swelling, itching, lip swelling, rash or tongue swelling Review of Systems All/Imm: Denies: tongue swelling or facial swelling PFSH ED PFSH: Medical History Cutaneous lupus erythematosus prior Hx? 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 Patient states after her epinephrine IM she was feeling much better but that she started having wheezing again after her DuoNeb treatment. She is audibly wheezing upon my arrival to her room. Not clear as to why she had a rebound. I think we need to do a little more due diligence and to evaluate for any other potential causes of her shortness of breath at the same time of her another dose of epinephrine. Time: 18:34 Reevaluation #2: Patient still continues to have evidence of bronchospasm. We will go ahead and broaden her differential and work-up for other potential etiologies of her bronchospasm and same time while treating her with IV magnesium etc. Is being turned over to the overnight hospitalist for further work-up and disposition as appropriate. Time: 19:25 Vital Signs: Vital signs: Vital Signs Temperature 98.1 F 04/28/22 14:25 Pulse Rate 72 04/28/22 22:05 Respiratory Rate 21 H 04/28/22 22:05 Blood Pressure 139/95 04/28/22 22:15 Pulse Oximetry 91 04/28/22 22:05 Oxygen Delivery Me thod 04/28/22 19:10 MDM - Allergic Reaction Medical Decision Making Patient with questionable history of possible medication reaction presented to the emergency department again for bronchospasm and wheezing. Initially was treated with epinephrine with some improvement however symptoms recrudesced and therefore differential was broadened to include potential other etiologies for her bronchospasm in a patient who does not normally have a history of COPD asthma etc. Lab Data I reviewed the patient's lab results. 04/28/22 18:40 04/28/22 18:40 Radiology Impressions Chest X-Ray 04/28/22 18:32 IMPRESSION: Left lower lobe atelectasis versus minimal infiltrate. Chest CTA 04/28/22 19:41 IMPRESSION: 1. Negative for pulmonary embolus. 2. Ascending thoracic aorta is dilated at 3.8 cm. 3. Cardiomegaly. 4. Scattered prominent mediastinal lymph nodes measuring up to 10 mm short axis, nonspecific. 5. Bilateral dependent atelectasis. Laboratory Results WBC 10.0 10^3/uL (4.0-10.0) 04/28/22 18:40 RBC 5.02 10^6/uL (4.1-5.3) 04/28/22 18:40 Hgb 14.7 g/dL (11.5-15.3) 04/28/22 18:40 Hct 44.2 % (37.0-47.0) 04/28/22 18:40 MCV 88.0 fl (81-99) 04/28/22 18:40 MCH 29.3 pg (28.0-34.0) 04/28/22 18:40 MCHC 33.3 g/dL (30.0-36.0) 04/28/22 18:40 RDW 14.1 % (12.1-15.1) 04/28/22 18:40 Plt Count 212 10^3/cmm (130-400) 04/28/22 18:40 MPV 10.1 fL (7.4-10.4) 04/28/22 18:40 Neut % (Auto) 82.7 % 04/28/22 18:40 Lymph % (Auto) 11.9 % 04/28/22 18:40 [place] % (Auto) 4.1 % 04/28/22 18:40 Eos % (Auto) 0.0 % 04/28/22 18:40 Baso % (Auto) 0.4 % 04/28/22 18:40 Neut # (Auto) 8.29 10^3/uL (1.8-7.7) H 04/28/22 18:40 Lymph # (Auto) 1.2 10^3/uL (0.8-4.8) 04/28/22 18:40 [place] # (Auto) 0.4 10^3/uL (0.2-0.9) 04/28/22 18:40 Eos # (Auto) 0.0 10^3/uL (0.0-0.8) 04/28/22 18:40 Baso # (Auto) 0.0 10^3/uL (0.0-0.1) 04/28/22 18:40 Nucleated RBC % (auto) 0 % 04/28/22 18:40 Nucleated RBCs # 0.0 /100WBC 04/28/22 18:40 D-Dimer 1.84 ug/mIFEU (0-0.59) H 04/28/22 18:40 Sodium 134 mmol/L (136-145) L 04/28/22 18:40 Potassium 4.5 mmol/L (3.5-5.1) 04/28/22 18:40 Chloride 95 mmol/L (98-107) L 04/28/22 18:40 Carbon Dioxide 22 mmol/L (22-29) 04/28/22 18:40 Anion Gap 21.5 (5-19) H 04/28/22 18:40 BUN 23 mg/dL (8-23) 04/28/22 18:40 Creatinine 1.0 mg/dL (0.5-0.9) H 04/28/22 18:40 GFR Calculation 55.5 mL/min (90-130) L 04/28/22 18:40 Glucose 106 mg/dL (65-115) 04/28/22 18:40 Calculated Osmolality 282 mOsm/kg (285-295) L 04/28/22 18:40 Calcium 9.8 mg/dL (8.5-10.5) 04/28/22 18:40 Total Bilirubin 0.3 mg/dL (0.15-1.2) 04/28/22 18:40 AST 21 U/L (0-32) 04/28/22 18:40 ALT 16 U/L (0-33) 04/28/22 18:40 Alkaline Phosphatase 80 U/L (35-105) 04/28/22 18:40 Troponin T Baseline 6 ng/L (0-10) 04/28/22 18:40 Troponin T 120 Minute 6.00 ng/L (0-10) 04/28/22 21:21 Delta Troponin T 0 ABS# (0-10) 04/28/22 21:21 NT-Pro-B Natriuret Pep 40 pg/mL (0-125) 04/28/22 18:40 Total Protein 7.1 g/dL (6.6-8.7) 04/28/22 18:40 Albumin 4.3 g/dL (3.5-5.2) 04/28/22 18:40 Globulin 2.8 g/dL (1.3-4.6) 04/28/22 18:40 EKG Data EKG 1: I personally reviewed and interpreted this EKG as follows: Interpretation: Contemporaneous review of EKG reveals ventricular rate of 81 bpm with normal RI interval, QRS duration, corrected QT interval. Loss of and R wave anteriorly suggestive of possible remote anterior infarction. No other acute ST-T wave changes noted at this time. Discharge Plan Discharge Patient Disposition: Home Clinical Impression: Dyspnea Condition: Stable Prescriptions: No Action lisinopril 10 mg tablet 10 - 20 mg PO DAILY aspirin [Adult Aspirin Regimen] 81 mg tablet,delayed release (DR/EC) 81 mg PO DAILY sertraline 25 mg tablet 25 mg PO DAILY ibuprofen 800 mg tablet 800 mg PO TID PRN (Reason: Pain) prednisone 20 mg tablet See Rx Instructions PO .COMPLEX PRN (Reason: joint pain flare) Qty: 30 1RF Rx Instructions: take 1 daily for 3-7 days PRN joint pain flare PO PRN; prednisone 10 mg tablet See Rx Instructions PO .COMPLEX Qty: 90 1RF Hold Instructions: Resume on 05/02/22. Rx Instructions: 3 tabs daily x3days, then 2 tabs daily x3days, 1.5 tab daily x3 days then stay on 1 tab daily til next appt. orally; prednisone 5 mg tablet See Rx Instructions .ROUTE .COMPLEX Qty: 60 1RF Hold Instructions: Resume on 12/16/21. Dose Instruction: TAKE 1 TO 2 TABLETS BY MOUTH DAILY FOR 5 TO 7 DAYS NEEDED FOR JOINT PAIN OR FLARE Rx Instructions: TAKE 1 TO 2 TABLETS BY MOUTH DAILY FOR 5 TO 7 DAYS NEEDED FOR JOINT PAIN OR FLARE nitrofurantoin monohyd/m-cryst [Macrobid] 100 mg capsule 100 mg PO BID 7 Days Qty: 14 0RF Rx Instructions: must administer with a meal/food omeprazole 40 mg capsule,delayed release(DR/EC) See Rx Instructions .ROUTE .COMPLEX Qty: 90 0RF Dose Instruction: TAKE 1 CAPSULE BY MOUTH DAILY Rx Instructions: TAKE 1 CAPSULE BY MOUTH DAILY folic acid 1 mg tablet See Rx Instructions .ROUTE .COMPLEX Qty: 90 0RF Dose Instruction: TAKE 1 TABLET BY MOUTH DAILY Rx Instructions: TAKE 1 TABLET BY MOUTH DAILY triamterene-hydrochlorothiazid 75-50 mg Tablet 1 tab PO DAILY albuterol sulfate 90 mcg/actuation Hfa Aerosol Inhaler 2 puff INHALATION Q4H PRN (Reason: Shortness Of Breath) prednisone 20 mg tablet 20 mg PO TID Qty: 15 0RF Rx Instructions: 1 p.o. 3 times daily x3 days, 1 p.o. twice daily x2 days, 1 p.o. daily x2 days prednisone 20 mg tablet 40 mg PO BID 5 Days Qty: 20 0RF albuterol sulfate 90 mcg/actuation HFA aerosol inhaler 2 inh INHALATION Q4H PRN (Reason: shortness of breath or wheezing) Qty: 18 0RF Discharge Orders: Discharge ED (Routine); Ordered 04/28/22 Ordered By: Tree Castro Referrals: Herbert Pham MD [Primary Care Provider] - 1-3 days Discharge Diet: Advance as tolerated Discharge Activity: Resume usual activity Patient Instructions: Dyspnea (ED) Coding Level of Care Code ED Masonry Inspector for Chg Fwd Documented by User: Tree Castro MD 04/28/22 22:23 HPI - Allergic Reaction General: Chief complaint: Shortness of Breath/Dyspnea Stated complaint: SOB, cough Time Seen by Provider: 04/28/22 16:36 PFSH ED PFSH: Medical History Cutaneous lupus erythematosus prior Hx? 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 UTI (urinary tract infection) Surgical History History of bilateral knee replacement History of hysterectomy still has 1 ovary History of tonsillectomy Family History Other CAD (coronary artery disease) Cancer Chronic kidney disease (CKD) Diabetes Family history of premature coronary artery disease Hypertension Lung disease Lupus Rheumatoid arthritis Denies family history of Stroke Social History Smoking and tobacco status: never smoked Alcohol intake: never Course Vital Signs: Vital signs: Vital Signs Temperature 98.1 F 04/28/22 14:25 Pulse Rate 72 04/28/22 22:05 Respiratory Rate 21 H 04/28/22 22:05 Blood Pressure 139/95 04/28/22 22:15 Pulse Oximetry 91 04/28/22 22:05 Oxygen Delivery Me thod 04/28/22 19:10 MDM - Allergic Reaction Medical Decision Making Patient with questionable history of possible medication reaction presented to the emergency department again for bronchospasm and wheezing. Initially was treated with epinephrine with some improvement however symptoms recrudesced and therefore differential was broadened to include potential other etiologies for her bronchospasm in a patient who does not normally have a history of COPD asthma etc. Patient presents here with dyspnea likely reactive airway disease possibly from her medication she feels much improved her oxygen is normal CTA is normal she is continue with steroids albuterol and follow-up with PCP and return if worsening. Lab Data 04/28/22 18:40 04/28/22 18:40 Radiology Impressions Chest X-Ray 04/28/22 18:32 IMPRESSION: Left lower lobe atelectasis versus minimal infiltrate. Chest CTA 04/28/22 19:41 IMPRESSION: 1. Negative for pulmonary embolus. 2. Ascending thoracic aorta is dilated at 3.8 cm. 3. Cardiomegaly. 4. Scattered prominent mediastinal lymph nodes measuring up to 10 mm short axis, nonspecific. 5. Bilateral dependent atelectasis. Laboratory Results WBC 10.0 10^3/uL (4.0-10.0) 04/28/22 18:40 RBC 5.02 10^6/uL (4.1-5.3) 04/28/22 18:40 Hgb 14.7 g/dL (11.5-15.3) 04/28/22 18:40 Hct 44.2 % (37.0-47.0) 04/28/22 18:40 MCV 88.0 fl (81-99) 04/28/22 18:40 MCH 29.3 pg (28.0-34.0) 04/28/22 18:40 MCHC 33.3 g/dL (30.0-36.0) 04/28/22 18:40 RDW 14.1 % (12.1-15.1) 04/28/22 18:40 Plt Count 212 10^3/cmm (130-400) 04/28/22 18:40 MPV 10.1 fL (7.4-10.4) 04/28/22 18:40 Neut % (Auto) 82.7 % 04/28/22 18:40 Lymph % (Auto) 11.9 % 04/28/22 18:40 [place] % (Auto) 4.1 % 04/28/22 18:40 Eos % (Auto) 0.0 % 04/28/22 18:40 Baso % (Auto) 0.4 % 04/28/22 18:40 Neut # (Auto) 8.29 10^3/uL (1.8-7.7) H 04/28/22 18:40 Lymph # (Auto) 1.2 10^3/uL (0.8-4.8) 04/28/22 18:40 [place] # (Auto) 0.4 10^3/uL (0.2-0.9) 04/28/22 18:40 Eos # (Auto) 0.0 10^3/uL (0.0-0.8) 04/28/22 18:40 Baso # (Auto) 0.0 10^3/uL (0.0-0.1) 04/28/22 18:40 Nucleated RBC % (auto) 0 % 04/28/22 18:40 Nucleated RBCs # 0.0 /100WBC 04/28/22 18:40 D-Dimer 1.84 ug/mIFEU (0-0.59) H 04/28/22 18:40 Sodium 134 mmol/L (136-145) L 04/28/22 18:40 Potassium 4.5 mmol/L (3.5-5.1) 04/28/22 18:40 Chloride 95 mmol/L (98-107) L 04/28/22 18:40 Carbon Dioxide 22 mmol/L (22-29) 04/28/22 18:40 Anion Gap 21.5 (5-19) H 04/28/22 18:40 BUN 23 mg/dL (8-23) 04/28/22 18:40 Creatinine 1.0 mg/dL (0.5-0.9) H 04/28/22 18:40 GFR Calculation 55.5 mL/min (90-130) L 04/28/22 18:40 Glucose 106 mg/dL (65-115) 04/28/22 18:40 Calculated Osmolality 282 mOsm/kg (285-295) L 04/28/22 18:40 Calcium 9.8 mg/dL (8.5-10.5) 04/28/22 18:40 Total Bilirubin 0.3 mg/dL (0.15-1.2) 04/28/22 18:40 AST 21 U/L (0-32) 04/28/22 18:40 ALT 16 U/L (0-33) 04/28/22 18:40 Alkaline Phosphatase 80 U/L (35-105) 04/28/22 18:40 Troponin T Baseline 6 ng/L (0-10) 04/28/22 18:40 Troponin T 120 Minute 6.00 ng/L (0-10) 04/28/22 21:21 Delta Troponin T 0 ABS# (0-10) 04/28/22 21:21 NT-Pro-B Natriuret Pep 40 pg/mL (0-125) 04/28/22 18:40 Total Protein 7.1 g/dL (6.6-8.7) 04/28/22 18:40 Albumin 4.3 g/dL (3.5-5.2) 04/28/22 18:40 Globulin 2.8 g/dL (1.3-4.6) 04/28/22 18:40 Discharge Plan Discharge Patient Disposition: Home Clinical Impression: Dyspnea Condition: Stable Prescriptions: No Action lisinopril 10 mg tablet 10 - 20 mg PO DAILY aspirin [Adult Aspirin Regimen] 81 mg tablet,delayed release (DR/EC) 81 mg PO DAILY sertraline 25 mg tablet 25 mg PO DAILY ibuprofen 800 mg tablet 800 mg PO TID PRN (Reason: Pain) prednisone 20 mg tablet See Rx Instructions PO .COMPLEX PRN (Reason: joint pain flare) Qty: 30 1RF Rx Instructions: take 1 daily for 3-7 days PRN joint pain flare PO PRN; prednisone 10 mg tablet See Rx Instructions PO .COMPLEX Qty: 90 1RF Hold Instructions: Resume on 05/02/22. Rx Instructions: 3 tabs daily x3days, then 2 tabs daily x3days, 1.5 tab daily x3 days then stay on 1 tab daily til next appt. orally; prednisone 5 mg tablet See Rx Instructions .ROUTE .COMPLEX Qty: 60 1RF Hold Instructions: Resume on 12/16/21. Dose Instruction: TAKE 1 TO 2 TABLETS BY MOUTH DAILY FOR 5 TO 7 DAYS NEEDED FOR JOINT PAIN OR FLARE Rx Instructions: TAKE 1 TO 2 TABLETS BY MOUTH DAILY FOR 5 TO 7 DAYS NEEDED FOR JOINT PAIN OR FLARE nitrofurantoin monohyd/m-cryst [Macrobid] 100 mg capsule 100 mg PO BID 7 Days Qty: 14 0RF Rx Instructions: must administer with a meal/food omeprazole 40 mg capsule,delayed release(DR/EC) See Rx Instructions .ROUTE .COMPLEX Qty: 90 0RF Dose Instruction: TAKE 1 CAPSULE BY MOUTH DAILY Rx Instructions: TAKE 1 CAPSULE BY MOUTH DAILY folic acid 1 mg tablet See Rx Instructions .ROUTE .COMPLEX Qty: 90 0RF Dose Instruction: TAKE 1 TABLET BY MOUTH DAILY Rx Instructions: TAKE 1 TABLET BY MOUTH DAILY triamterene-hydrochlorothiazid 75-50 mg Tablet 1 tab PO DAILY albuterol sulfate 90 mcg/actuation Hfa Aerosol Inhaler 2 puff INHALATION Q4H PRN (Reason: Shortness Of Breath) prednisone 20 mg tablet 20 mg PO TID Qty: 15 0RF Rx Instructions: 1 p.o. 3 times daily x3 days, 1 p.o. twice daily x2 days, 1 p.o. daily x2 days prednisone 20 mg tablet 40 mg PO BID 5 Days Qty: 20 0RF albuterol sulfate 90 mcg/actuation HFA aerosol inhaler 2 inh INHALATION Q4H PRN (Reason: shortness of breath or wheezing) Qty: 18 0RF Discharge Orders: Discharge ED (Routine); Ordered 04/28/22 Ordered By: Tree Castro Referrals: Herbert Pham MD [Primary Care Provider] - 1-3 days Discharge Diet: Advance as tolerated Discharge Activity: Resume usual activity Patient Instructions: Dyspnea (ED) Coding Level of Care Code ED Masonry Inspector for Liana Crowe
[2022-04-28] MEDS: sodium chloride 0.9% 1,000 ML 999 ML IV (17:08)
[2022-04-28] MEDS: EPINEPHrine 1 mg/mL INJ 0.3 MG IM ×2 (17:08→18:52)
[2022-04-28] MEDS: dexamethasone 10 mg/mL INJ IVP (17:08)
--- NOTE | 2022-04-28 17:16 | PC.NURSE ---
pt resting in bed - a&ox4. assessment completed. pt connected to monitor. 3 visitors at bedside. pt has audible wheezing.
[2022-04-28] MEDS: ipratropium-albuterol 3 mL Neb INHALATION (18:13)
--- NOTE | 2022-04-28 18:32 | XRR_ITS ---
PROCEDURE INFORMATION: Exam: XR Chest Exam date and time: 04/28/2022 6:37 PM Age: 67 years old Clinical indication: Shortness of breath; Additional info: SOB TECHNIQUE: Imaging protocol: Radiologic exam of the chest. Views: 1 view. COMPARISON: No relevant prior studies available. FINDINGS: Lungs: Left lower lobe atelectasis versus minimal infiltrate. Pleural spaces: Unremarkable. No pleural effusion. No pneumothorax. Heart/Mediastinum: Unremarkable. No cardiomegaly. Bones/joints: Unremarkable. XR/XR chest 1V portable [id number] IMPRESSION: Left lower lobe atelectasis versus minimal infiltrate.
--- NOTE | 2022-04-28 18:32 | ECG_ITS ---
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 Measurements Intervals [place] Rate: 81 P: 38 MA: 139 QRS: -6 QRSD: 93 T: 28 QT: 379 QTc: 442 Interpretive Statements SINUS RHYTHM POSSIBLE ANTERIOR MYOCARDIAL INFARCTION , PROBABLY OLD [30 ms Q WAVE IN V3/V4, OR R < 0.2 mV IN V4] No previous ECG available for comparison Electronically Signed On 04-29-2022 21:39:26 CLINICAL SCIENCE CONSULTANT by Karlie Dinh M.D. [email or web address] [email or web address].[address]/store/OM/[id number]
[2022-04-28 18:59] LABS: Basophils % 0.4 %; Hematocrit 44.2 % (37.0-47.0); Hemoglobin 14.7 g/dL (11.5-15.3); Lymphocytes # 1.2 10^3/uL (0.8-4.8); Lymphocytes % 11.9 %; Mean Corpuscular HGB Conc 33.3 g/dL (30.0-36.0); Mean Corpuscular Hemoglobin 29.3 pg (28.0-34.0); Mean Platelet Volume 10.1 fL (7.4-10.4); Monocytes # 0.4 10^3/uL (0.2-0.9); Monocytes % 4.1 %; Neutrophils # 8.29 10^3/uL (1.8-7.7); Neutrophils % 82.7 %; Nucleated Red Blood Cells % 0 %; Platelet Count 212 10^3/cmm (130-400); Red Blood Count 5.02 10^6/uL (4.1-5.3); Red Cell Distribution Width 14.1 % (12.1-15.1)
[2022-04-28 19:22] LABS: Troponin(5th) Baseline 6 ng/L (0-10)
[2022-04-28 19:30] LABS: Alanine Aminotransferase 16 U/L (0-33); Albumin Level 4.3 g/dL (3.5-5.2); Alkaline Phosphatase 80 U/L (35-105); Anion Gap 21.5 (5-19); Aspartate Amino Transferase 21 U/L (0-32); Blood Urea Nitrogen 23 mg/dL (8-23); Calcium 9.8 mg/dL (8.5-10.5); Carbon Dioxide 22 mmol/L (22-29); Chloride 95 mmol/L (98-107); Globulin 2.8 g/dL (1.3-4.6); Glomerular Filtration Rate 55.5 mL/min (90-130); Glucose 106 mg/dL (65-115); NT Pro B Type Natriuretic Pept 40 pg/mL (0-125); Osmolality Calculated 282 mOsm/kg (285-295); Potassium 4.5 mmol/L (3.5-5.1); Sodium 134 mmol/L (136-145); Total Bilirubin 0.3 mg/dL (0.15-1.2); Total Protein 7.1 g/dL (6.6-8.7)
[2022-04-28 19:37] LABS: D Dimer 1.84 ug/mIFEU (0-0.59)
--- NOTE | 2022-04-28 19:41 | CTR_ITS ---
PROCEDURE INFORMATION: Exam: CTA Chest With Contrast Exam date and time: 04/28/2022 9:08 PM Age: 67 years old Clinical indication: Abnormal findings; Abnormal diagnostic tests; Elevated d-dimer; Cough and shortness of breath and wheezing; Patient HX: Cough with audible wheezing and SOB. Elevated d dimer. TECHNIQUE: Imaging protocol: Computed tomographic angiography of the chest with contrast. 3D rendering (Not supervised by radiologist): MIP and/or 3D reconstructed images were created by the technologist. Radiation optimization: All CT scans at this facility use at least one of these dose optimization techniques: automated exposure control; mA and/or kV adjustment per patient size (includes targeted exams where dose is matched to clinical indication); or iterative reconstruction. Contrast material: OMNI 350; Contrast volume: 61 ml; Contrast route: INTRAVENOUS (IV); REPORTING DATA: Count of CT and Cardiac NM exams in prior 12 months: This patient has received 0 known CTs and 0 known cardiac nuclear medicine studies in the 12 months prior to the current study. COMPARISON: CR (CHEST, ) 04/28/2022 6:37 PM RADIATION DOSE METRICS: Total DLP (mGy-cm): 311.21 FINDINGS: Pulmonary arteries: Normal. No pulmonary emboli. Aorta: Ascending thoracic aorta is dilated at 3.8 cm. Lungs: Bilateral dependent atelectasis. Pleural spaces: Unremarkable. No pneumothorax. No pleural effusion. Heart: Cardiomegaly. Lymph nodes: Scattered prominent mediastinal lymph nodes measuring up to 10 mm short axis, nonspecific. Bones/joints: Unremarkable. No acute fracture. Soft tissues: Unremarkable. CT/CT angio chest PE protcl [id number] IMPRESSION: 1. Negative for pulmonary embolus. 2. Ascending thoracic aorta is dilated at 3.8 cm. 3. Cardiomegaly. 4. Scattered prominent mediastinal lymph nodes measuring up to 10 mm short axis, nonspecific. 5. Bilateral dependent atelectasis.
[2022-04-28] MEDS: magnesium sulfate premix 2 GM/50 ML PIGGYBACK IV (20:28)
--- NOTE | 2022-04-28 20:39 | ECG_ITS ---
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 Measurements Intervals [place] Rate: 77 P: 42 LA: 150 QRS: -9 QRSD: 94 T: 36 QT: 383 QTc: 436 Interpretive Statements SINUS RHYTHM MINIMAL VOLTAGE CRITERIA FOR LVH, CONSIDER NORMAL VARIANT [MEETS CRITERIA IN ONE OF: R(aVL), S(V1), R(V5), R(V5/V6)+S(V1)] POSSIBLE ANTERIOR MYOCARDIAL INFARCTION , PROBABLY OLD [30 ms Q WAVE IN V3/V4, OR R < 0.2 mV IN V4] Compared to ECG 04/28/2022 18:47:14 No significant changes Electronically Signed On 04-29-2022 21:39:41 RN ADMISSIONS by Karlie Dinh M.D. [email or web address]/store/[id number]
[2022-04-28] MEDS: diphenhydrAMINE 50 mg/mL SDV 1mL IVP (21:00)
[2022-04-28] MEDS: iohexol 350 mg/mL 500 mL Btl (per mL) IV (21:18)
[2022-04-28 22:16] LABS: Troponin 5 2HR Delta 0 ABS# (0-10)
== END 2022-04-28 22:15 | disposition home or self-care (01) ==
PROVIDERS: Emergency Medicine; Emergency Provider Emergency Medicine; PCP Family Medicine
DX: R06.00 Dyspnea, unspecified (principal); Z79.82 Long term (current) use of aspirin; L93.2 Other local lupus erythematosus
CPT/HCPCS: 71045; 71275; 80053; 83880; 84484; 85025; 85378; 93005; 94640; 96365; 96372; 96375; 99285; J0171; J1100; J1200; J2920; J3475; J7030; Q9967

== ENCOUNTER 2022-05-02 11:06 | Outpatient (CLI) | payer MEDICARE, SELFPAY ==
--- NOTE | 2022-05-02 11:19 | MM_ITS ---
WS: [id number] BILATERAL SCREENING DIGITAL TOMOSYNTHESIS MAMMOGRAM WITH CAD HISTORY: SCREENING COMPARISON: 04/29/2021, 02/19/2018 and 02/05/2018 Bilateral CC and MLO views with tomosynthesis and synthetic mammography submitted. Computer aided det ection analyzed. Breast composition: The breasts are heterogeneously dense, which may obscure small masses. No suspici ous masses, microcalcifications or architectural distortion. Long-term stability 6 mm asymmetry in th e superior anterior LEFT breast. Also noted on prior mammogram from 09/30/2015. MM/[place] [id number] IMPRESSION: BI-RADS: 2-Benign FOLLOW UP: 1 Year Follow-up
== END 2022-05-02 11:07 | disposition home or self-care (01) ==
LOC: RAD 11:11
PROVIDERS: PCP Family Medicine; Visit Provider Family Medicine
DX: Z12.31 Encounter for screening mammogram for malignant neoplasm of breast (principal)
CPT/HCPCS: 77063; 77067

== ENCOUNTER 2022-05-16 09:13 | Outpatient (CLI) | payer MEDICARE, SELFPAY | END 2022-05-16 09:14 | disposition home or self-care (01) | LOC: RAD 05-17 09:03 | PROVIDERS: PCP Family Medicine; Visit Provider Specialist | DX: M25.562 Pain in left knee (principal) | CPT/HCPCS: 73560; 73565 ==

== ENCOUNTER 2022-05-16 14:42 | Outpatient (CLI) | payer MEDICARE, SELFPAY | END 2022-05-16 14:43 | disposition home or self-care (01) | LOC: SPT 14:42 | PROVIDERS: PCP Family Medicine; Visit Provider Specialist | DX: Z46.89 Encounter for fitting and adjustment of other specified devices (principal); M25.562 Pain in left knee; Z96.653 Presence of artificial knee joint, bilateral | CPT/HCPCS: 97760; 99204; L1812 ==

== ENCOUNTER 2022-05-25 08:00 | Outpatient (CLI) | payer MEDICARE, SELFPAY ==
--- NOTE | 2022-05-25 08:06 | NM_ITS ---
WS: [id number] THREE-PHASE BONE SCAN HISTORY: left knee pain, bilateral knee replacements. COMPARISON: Radiographs 05/16/2022 Patient is is injected with 25.1 mCi Tc99m HDP intravenously. Immediate angiographic phase imaging is performed over the area of concern. Static blood pool imaging also performed. Two-hour whole-body sc intigrams performed in anterior and posterior projections. Additional large field of view imaging sub mitted as necessary. Angiographic and blood pool imaging is normal. There is no increased uptake. Normal symmetric appeara nce. Photopenic defects on the blood pool imaging from knee prostheses. There is some very mild increased uptake involving the LEFT knee around the patella. Small amount of increased uptake along the tibial plateau surfaces. This is bilateral. Mild increased uptake involvin g the LEFT lumbosacral region. Probably facet joint arthritis. Mild AC joint arthritis and glenohumer al joint arthritis. No rib lesions. Mild degenerative arthropathy in the LEFT midfoot. NM/NM bone 3 phase [id number] IMPRESSION: 1. No osteomyelitis or cellulitis involving either knee. 2. Mild increased uptake involving the LEFT patella. On recent radiograph scle rotic bone changes and narrowing of the patellofemoral joint space. Favor arthr itis. Additional mild increased uptake along the tibial plateau surfaces bilate rally. This can be seen with loosening. There is very slight lucency involving the RIGHT tibial plateau prosthesis. These changes can also be seen with recent placement of the prostheses. May be a normal response if these are more recent knee prostheses.
== END 2022-05-25 08:01 | disposition home or self-care (01) ==
LOC: RAD 08:02
PROVIDERS: PCP Family Medicine; Visit Provider Specialist
DX: M25.562 Pain in left knee (principal); Z96.653 Presence of artificial knee joint, bilateral
CPT/HCPCS: 78315; A9561

== ENCOUNTER → 2022-07-07 13:07 | Outpatient (BNVA) | payer MEDICARE, SELFPAY | PROVIDERS: PCP Family Medicine; Visit Provider Internal Medicine Rheumatology | DX: L93.2 Other local lupus erythematosus (principal); Z79.899 Other long term (current) drug therapy; M05.79 Rheumatoid arthritis with rheumatoid factor of multiple sites without organ or systems involvement; M79.673 Pain in unspecified foot; R76.8 Other specified abnormal immunological findings in serum; Z71.85 Encounter for immunization safety counseling; N39.0 Urinary tract infection, site not specified; M06.041 Rheumatoid arthritis without rheumatoid factor, right hand; M06.042 Rheumatoid arthritis without rheumatoid factor, left hand | CPT/HCPCS: 36415; 71046; 73630; 80076; 82565; 85025; 85651; 86140; 99214 ==

== ENCOUNTER → 2022-11-15 10:30 | Outpatient (BNVA) | payer MEDICARE, SELFPAY | PROVIDERS: PCP Family Medicine; Visit Provider Podiatrist Foot & Ankle Surgery | DX: Q66.222 Congenital metatarsus adductus, left foot; Q66.221 Congenital metatarsus adductus, right foot | CPT/HCPCS: 73630; 99203 ==

== ENCOUNTER → 2022-12-13 10:50 | Outpatient (BNVA) | payer MEDICARE, SELFPAY | PROVIDERS: PCP Family Medicine; Visit Provider Podiatrist Foot & Ankle Surgery | DX: Q66.221 Congenital metatarsus adductus, right foot; Q66.222 Congenital metatarsus adductus, left foot | CPT/HCPCS: 99213 ==

== ENCOUNTER 2022-12-15 13:17 | Outpatient (CLI) | payer MEDICARE, SELFPAY ==
--- NOTE | 2022-12-15 13:22 | XR_ITS ---
WS: [id number] SCREENING DEXA SCAN Scatter Lab CLINICAL INFORMATION: OSTEOPOROSIS SCREENING/ASYMPTOMATIC POSTMENOPAUSAL STATUS COMPARISON: None. FINDINGS: The L1-L4 bone mineral density measures 1.693 g/cm2. This corresponds to a T score score of 4.3 and Z score of 5.2. Left femoral neck bone mineral density measures 1.122 g/cm2. This corresponds to a T score of 0.9 and Z score of 1.7. Right femoral neck bone mineral density measures 1.110 g/cm2. This corresponds to a T score 0.8of and Z score of 1.6. Mean femoral neck bone mineral density measures 1.116 g/cm2. This corresponds to a T score of 0.9 and Z score of 1.6. IMPRESSION: Normal bone mineralization. Patient's FRAX calculated 10 year probability for major osteoporotic fracture is 12.1% and osteoporot ic hip fracture is 0.3%.
== END 2022-12-15 13:18 | disposition home or self-care (01) ==
LOC: RAD 13:18
PROVIDERS: PCP Family Medicine; Visit Provider Family Medicine
DX: Z78.0 Asymptomatic menopausal state (principal)
CPT/HCPCS: 77080

== ENCOUNTER 2023-01-18 11:36 | Outpatient (CLI) | payer MEDICARE, SELFPAY | END 2023-01-18 11:37 | disposition home or self-care (01) | LOC: SPT 11:36 | PROVIDERS: PCP Family Medicine; Visit Provider Podiatrist Foot & Ankle Surgery | DX: Z46.89 Encounter for fitting and adjustment of other specified devices (principal); M79.671 Pain in right foot; M79.672 Pain in left foot | CPT/HCPCS: 97760; L3030 ==

== ENCOUNTER → 2023-03-14 14:08 | Outpatient (BNVA) | payer MEDICARE, SELFPAY | PROVIDERS: PCP Family Medicine; Visit Provider Internal Medicine Rheumatology | DX: Z79.899 Other long term (current) drug therapy (principal); M05.79 Rheumatoid arthritis with rheumatoid factor of multiple sites without organ or systems involvement; L93.2 Other local lupus erythematosus; R76.8 Other specified abnormal immunological findings in serum; Z71.85 Encounter for immunization safety counseling; N39.0 Urinary tract infection, site not specified; M06.041 Rheumatoid arthritis without rheumatoid factor, right hand; M06.042 Rheumatoid arthritis without rheumatoid factor, left hand | CPT/HCPCS: 36415; 80076; 82565; 85025; 86140; 99214 ==

== ENCOUNTER 2023-03-29 20:00 | Outpatient (CLI) | payer MEDICARE, SELFPAY | END 2023-03-29 20:01 | disposition home or self-care (01) | LOC: SLEEP 03-30 02:36 | PROVIDERS: PCP Family Medicine; Visit Provider Family Medicine | DX: G47.33 Obstructive sleep apnea (adult) (pediatric) (principal); R09.02 Hypoxemia; R06.83 Snoring; G47.9 Sleep disorder, unspecified | CPT/HCPCS: 95810 ==

== ENCOUNTER 2023-05-08 09:13 | Outpatient (CLI) | payer MEDICARE, SELFPAY ==
--- NOTE | 2023-05-08 09:22 | MM_ITS ---
WS: [id number] BILATERAL SCREENING DIGITAL TOMOSYNTHESIS MAMMOGRAM WITH CAD HISTORY: SCREENING COMPARISON: 05/02/2022, 04/29/2021 Bilateral CC and MLO views with tomosynthesis and synthetic mammography submitted. Computer aided det ection analyzed. Breast composition: There are scattered areas of fibroglandular density. No suspicious masses, microc alcifications or architectural distortion. Benign arterial calcifications. IMPRESSION: MM/[place] [id number] BI-RADS: 2-Benign FOLLOW UP: 1 Year Follow-up
== END 2023-05-08 09:14 | disposition home or self-care (01) ==
LOC: RAD 09:14
PROVIDERS: PCP Family Medicine; Visit Provider Family Medicine
DX: Z12.31 Encounter for screening mammogram for malignant neoplasm of breast (principal)
CPT/HCPCS: 77063; 77067

== ENCOUNTER 2023-05-10 20:00 | Outpatient (CLI) | payer MEDICARE, SELFPAY | END 2023-05-10 20:01 | disposition home or self-care (01) | LOC: SLEEP 05-11 06:22 | PROVIDERS: PCP Family Medicine; Visit Provider Family Medicine | DX: G47.33 Obstructive sleep apnea (adult) (pediatric) (principal); G47.34 Idiopathic sleep related nonobstructive alveolar hypoventilation | CPT/HCPCS: 95811 ==

== ENCOUNTER 2023-06-15 11:57 | Outpatient (CLI) | payer MEDICARE, SELFPAY ==
--- NOTE | 2023-06-15 12:08 | XR_ITS ---
WS: [id number] Exam: XR shoulder LT min 2V* [id number] Date/Time of Exam: 06/15/2023 12:10 PM Reason For Exam: PAIN IN L SHOULDER No fracture or dislocation. Moderate DJD of the glenohumeral joint. Mild AC joint DJD. Normal soft ti ssues. IMPRESSION: 1. Degenerative changes. No fracture.
== END 2023-06-15 11:58 | disposition home or self-care (01) ==
LOC: RAD 11:59
PROVIDERS: PCP Family Medicine; Visit Provider Family Medicine
DX: M19.012 Primary osteoarthritis, left shoulder (principal); M25.512 Pain in left shoulder
CPT/HCPCS: 73030

== ENCOUNTER → 2023-10-10 08:31 | Outpatient (BNVA) | payer MEDICARE, SELFPAY | PROVIDERS: PCP Family Medicine; Visit Provider Podiatrist Foot & Ankle Surgery | DX: Q66.221 Congenital metatarsus adductus, right foot; Q66.222 Congenital metatarsus adductus, left foot | CPT/HCPCS: 99213 ==

== ENCOUNTER → 2023-10-31 08:26 | Outpatient (BNVA) | payer MEDICARE, SELFPAY | PROVIDERS: PCP Family Medicine; Visit Provider Podiatrist Foot & Ankle Surgery | DX: Q66.221 Congenital metatarsus adductus, right foot; Q66.222 Congenital metatarsus adductus, left foot | CPT/HCPCS: 99213 ==

== ENCOUNTER → 2023-12-11 08:35 | Outpatient (BNVA) | payer MEDICARE, SELFPAY | PROVIDERS: PCP Family Medicine; Visit Provider Podiatrist Foot & Ankle Surgery | DX: Q66.221 Congenital metatarsus adductus, right foot; Q66.222 Congenital metatarsus adductus, left foot | CPT/HCPCS: 99214 ==

== ENCOUNTER 2023-12-27 05:36 | Day surgery (SDC) | payer MEDICARE, SELFPAY ==
[2023-12-27] VITALS (16 sets, daily range): BP systolic 117–168; BP diastolic 72–93; PULSE 62–80; RESP 16–18; TEMP 36.1–36.6; O2SAT 91–99; BMI 32.2
--- NOTE | 2023-12-27 | XR_ITS ---
WS: [id number] Right foot, C-arm fluoroscopy views, 12/27/2023 Clinical Data: [facility] Comparison: Bilateral feet, 11/15/2022 Findings: Dr. Westfall fused the right second toe PIP joint with an orthopedic screw. XR/XR foot RT 2V [id number] Impression: Fusion of the right second toe PIP joint.
--- NOTE | 2023-12-27 06:19 | P.ANESASSM_ITS ---
Pre-Anesthetic Assessment Height/Weight: Height 5 ft 4 in Weight 188 lb Temp Pulse Resp BP Pulse Ox O2 Del Method 98 F 62 18 168/93 97 Room Air 12/27/23 06:06 12/27/23 06:06 12/27/23 06:06 12/27/23 06:06 12/27/23 06:06 12/27/23 06:06 Preop Diagnosis: Right foot hallux valgus, second hammertoe Operation Date: 12/27/23 07:00 Proposed Procedures p Bunionectomy Jose(Right) - Buster Krishnan DPM s Gavin Osteotomy(Right) - Buster Krishnan DPM s Right 2nd hammertoe repair with PIPJ fusion(Right) - Buster Krishnan DPM s Right 2nd toe flexor to extensor tendon transfer(Right) - Buster Krishnan DPM Last intake: Intake Last Liquid Date 12/26/23 Last Liquid Time 20:00 Last Solid Date 12/26/23 Last Solid Time 20:00 Anesthetic Plan ASA status: 3 Anesthesia: General Other: Patient states she is extremely slow to wake up from anesthesia, took 6 hours after her TKA NPO since yesterday evening History of hypertension on lisinopril. Preop BP 168/93 Rheumatoid arthritis not on any meds for this EKG showing sinus rhythm METs greater than 4 Plan for general anesthesia with local via surgeon Medications/Allergies Home Medications Medication Instructions Recorded Confirmed Last Taken Type lisinopril 10 mg tablet 10 - 20 mg PO DAILY 04/20/20 12/26/23 12/26/23 History sertraline 25 mg tablet 25 mg PO DAILY 12/21/20 12/26/23 12/26/23 History albuterol sulfate 90 mcg/actuation 2 puff inhalation Q4H PRN 12/08/21 12/26/23 Unknown History aerosol inhaler Shortness Of Breath triamterene 75 1 tab PO DAILY 12/08/21 12/26/23 12/26/23 History mg-hydrochlorothiazide 50 mg tablet hinged knee brace #1 ea 05/16/22 12/11/23 Unknown Rx prednisone 5 mg tablet 5 mg PO DAILY #90 tabs 07/07/22 12/26/23 Unknown Rx orthotic insoles #1 ea 12/13/22 12/11/23 Unknown Rx acetaminophen 500 mg capsule 1,000 mg PO BID 03/14/23 12/26/23 12/26/23 History meloxicam 7.5 mg tablet 7.5 mg PO DAILY #14 tabs 10/10/23 12/26/23 12/25/23 Rx Allergies Allergy/AdvReac Type Severity Reaction Status Date / Time hydroxychloroquine Allergy respiratory Verified 12/11/23 08:38 problems methotrexate Allergy ALGY-Difficulty Verified 12/11/23 08:38 Breathing Penicillins Allergy ALGY-Rash Verified 12/11/23 08:38 leflunomide AdvReac Intermediate N/V and Verified 12/11/23 08:38 diarrhea [facility] Anesthesia Medical History Seronegative rheumatoid arthritis of both hands UTI (urinary tract infection) SS-A antibody positive Immunization counseling High risk medication use Cutaneous lupus erythematosus prior Hx? Seropositive rheumatoid arthritis of multiple sites prior Hx? Inflammatory arthritis Surgical History History of hysterectomy still has 1 ovary History of tonsillectomy History of bilateral knee replacement Family History Other CAD (coronary artery disease) Cancer Chronic kidney disease (CKD) Diabetes Family history of premature coronary artery disease Hypertension Lung disease Lupus Rheumatoid arthritis Denies family history of Stroke Social History Smoking and tobacco/nicotine status: never used tobacco/nicotine Alcohol intake: never Data Anesthesia Cardiac Studies: No Data to Display
[2023-12-27] MEDS: gabapentin 300 mg Capsule PO (06:23)
[2023-12-27] MEDS: acetaminophen 1,000 MG/100 ML PIGGYBACK 400 MG IV (06:23)
[2023-12-27] MEDS: sodium chloride 0.9% 1,000 ML 30 ML IV (06:26)
--- NOTE | 2023-12-27 06:47 | W.PM.OPSUD ---
Surgery/Procedure H&P Update DATE OF PROCEDURE: December 27, 2023 DATE H&P PERFORMED: 12/11/23 H&P UPDATE INFORMATION: I have reviewed H&P completed within last 30 days, I have examined patient prior to procedure, No changes to prior documentation and H[place] is [place] [facility] [place] date indicated PREOP DIAGNOSIS: Right foot hallux valgus, second hammertoe PLANNED PROCEDURE: Operation Date: 12/27/23 07:00 Proposed Procedures p Bunionectomy Jose(Right) - KEON Gordillo Gavin Osteotomy(Right) - KEON Gordillo Right 2nd hammertoe repair with PIPJ fusion(Right) - KEON Gordillo Right 2nd toe flexor to extensor tendon transfer(Right) - Buster Krishnan DPM
[2023-12-27] MEDS: clindamycin 600 MG/50 ML PREMIX 100 MG IV (07:19)
[2023-12-27] MEDS: BUPivacaine 0.5% INJ 30 mL INJECTION (07:31)
--- NOTE | 2023-12-27 08:44 | P.OP_ITS ---
Operative Report Date of procedure: December 27, 2023 Pre-op diagnosis: Hallux valgus Surgeon: Buster Krishnan DPM Procedure: Date of procedure: 12/27/2023 Pre-op diagnosis: Right foot hallux valgus, second hammertoe Post-op diagnosis: Same Post-op findings: Right foot hallux valgus second hammertoe Procedure done: 1. Right foot Jose bunionectomy CPT 33332 2. Right foot second proximal interphalangeal joint arthrodesis CPT 13445 Implants: Two 4.0 headless screws [employer], one 2.5 headless compression screw [employer] Specimens removed: None Surgeon: Dr. Buster Krishnan DPM Professor Of Violin: KAUSHIK Estimated blood loss: 10 cc Tourniquet time: 67 minutes Complications: None Patient is a 68-year-old female with history significant for right foot hallux valgus deformity and concomitant second hammertoe. The patient has had the aforementioned chief complaint for some time. Conservative treatment measures have been attempted and the patient has opted for surgical intervention at this time. A lengthy discussion regarding the procedure, including risks and complications has been had with the patient and is noted in the recent clinic note. Written and verbal consent have been obtained. All patient questions have been answered to the patient?s satisfaction. No written or verbal guarantees have been given or implied. The patient has been NPO since midnight. The history has been reviewed and the history and physical is current. The signed consent was confirmed and placed in the patient chart. Patient imaging has been reviewed and is consistent with the diagnosis. Under mild sedation, the patient was brought into the operating room and placed on the table in the supine position. IV antibiotics were given by the anesthesia team as preoperative surgical prophylaxis. General sedation was then performed by the anesthesiateam. A local field block was performed using 0.5% Marcaine plain. A pneumatic tourniquet was then placed about the right ankle. The operative extremity was then prepped and draped in the usual fashion. The extremity was then elevated and exsanguinated before the tourniquet was inflated to 250 mmHg. After inflation, the following procedure was then performed. Attention was directed to the right foot where a #15 blade was used to make a stab incision to the medial aspect of the foot overlying the first metatarsal neck. Dissection was carried down through subcutaneous and superficial fascia to the level of periosteum which was incised. Periosteal elevator was then used to free up the dorsal and plantar soft tissues surrounding the first metatarsal. Next a Brenda bur was inserted into the stab incision and a transverse osteotomy was made through the first metatarsal neck. The capital fragment was then translated into the lateral position before being temporarily fixated with guidewires. The 1?2 intermetatarsal angle was noted to be reduced to appropriate anatomic position. Stab incision was made overlying the wires before two 4.0 cannulated screws were inserted over the wires across the osteotomy site. Good positioning of the screws was noted clinically as well as on C-arm imaging. A lateral release was performed at the level of the first metatarsophalangeal joint using a #15 blade. Care was taken to release the attachments of the fibular sesamoid. Reduction of the hallux valgus deformity was noted. Attention was then directed to the adjacent second digit. #15 blade was used to make a 4 cm incision overlying the proximal interphalangeal joint. Dissection was carried down to the level of the extensor tendon which was transected transversely at the level of the proximal interphalangeal joint. The joint was exposed and the articular cartilage from the head of the proximal phalanx and base of the intermediate phalanx were removed using a combination of rongeur and curette. A guidewire was driven into the base of the intermediate phalanx at the distal aspect of the toe before being driven in retrograde fashion back into the proximal phalanx. A headless compression screw was then inserted into the distal tip of the toe over the wire and across the proximal interphalangeal joint. Good positioning of the screw was noted clinically as well as on C-arm imaging. Incision sites were then irrigated with copious amounts sterile saline before attention was directed to closure. Deep tissue including tendon repair was closed with 3-0 Vicryl followed by skin closure using 4-0 nylon. The tourniquet was let down good hyperemic response was noted to all digits of the right foot. The patient tolerated the procedure well and without complication. The incision sites were dressed with Xeroform, 4 x 4 gauze, Kerlix, Jaciel The patient tolerated the procedure and anesthesia well and without complication. The patient was transported from the operating room to the recovery room with vital signs stable and vascular status intact to all digits of the right foot. The patient was given both written and verbal instructions to remain weightbearing as tolerated in postop shoe/cam boot to the operative extremity, to keep dressings/splint clean, dry and intact and to take pain medication as directed. The patient will follow-up in the outpatient setting at their scheduled appointment. The patient was discharged with my personal number and was instructed to call if any questions or issues should arise. They were discharged home once anesthesia criteria was met.
--- NOTE | 2023-12-27 08:44 | W.PM.BPON ---
Date of procedure: 12/27/2023 Surgeon name: Lizzette VangPCherie Reuse Technician(s) name(s): KAUSHIK Procedure(s) performed: Right foot Jose bunionectomy, second hammertoe repair PIPJ arthrodesis Description of findings: Right hallux valgus, right second hammertoe Estimated blood loss: 10 cc Tourniquet time: 67 minutes Specimen(s) removed: None Post-operative diagnosis: Hallux valgus right foot hammertoe right foot
[2023-12-27] MEDS: ketorolac 30 mg/mL INJ 15 MG IVP (10:47)
--- NOTE | 2023-12-27 17:58 | ANE.PACU2 ---
Inpatient post-anesthesia follow up: Airway intact: Yes Vital signs: Temperature 97.0 F Pulse Rate 73 Respiratory Rate 16 Blood Pressure 127/85 Pulse Oximetry 93 Oxygen Delivery Me thod Room Air Oxygen Flow Rate 6 Fraction of Inspir ed Oxygen Hydration adequate: Yes Nausea and vomiting: No Pain level: 1 Mental status: Baseline
== END 2023-12-27 11:30 | disposition home or self-care (01) ==
PROVIDERS: PCP Family Medicine; Visit Provider Podiatrist Foot & Ankle Surgery
PROC: (CPT 28296; principal; 2023-12-27 07:00)
PROC: (CPT 28285; 2023-12-27 07:00)
DX: M20.11 Hallux valgus (acquired), right foot (principal); M20.41 Other hammer toe(s) (acquired), right foot; I10 Essential (primary) hypertension; M06.9 Rheumatoid arthritis, unspecified
CPT/HCPCS: 28285; 28298; 73620; 76000; C1713 ×2; J0131; J1100; J1885; J2310; J2405; J2704; J3010; J3490; J7030

== ENCOUNTER → 2024-01-03 15:01 | Outpatient (BNVA) | payer MEDICARE, SELFPAY | PROVIDERS: PCP Family Medicine; Visit Provider Podiatrist Foot & Ankle Surgery | DX: M79.671 Pain in right foot (principal); M79.672 Pain in left foot; Q66.221 Congenital metatarsus adductus, right foot; Q66.222 Congenital metatarsus adductus, left foot | CPT/HCPCS: 73630; 99024; A6219 ==

== ENCOUNTER → 2024-01-10 15:48 | Outpatient (BNVA) | payer MEDICARE, SELFPAY | PROVIDERS: PCP Family Medicine; Visit Provider Podiatrist Foot & Ankle Surgery | DX: Z98.890 Other specified postprocedural states (principal); Q66.221 Congenital metatarsus adductus, right foot; Q66.222 Congenital metatarsus adductus, left foot | CPT/HCPCS: 99024 ==

== ENCOUNTER → 2024-01-24 14:43 | Outpatient (BNVA) | payer MEDICARE, SELFPAY | PROVIDERS: PCP Family Medicine; Visit Provider Podiatrist Foot & Ankle Surgery | DX: Z98.890 Other specified postprocedural states; Q66.221 Congenital metatarsus adductus, right foot; Q66.222 Congenital metatarsus adductus, left foot | CPT/HCPCS: 73630; 99024 ==

== ENCOUNTER → 2024-02-07 15:18 | Outpatient (BNVA) | payer MEDICARE, SELFPAY | PROVIDERS: PCP Family Medicine; Visit Provider Podiatrist Foot & Ankle Surgery | DX: Z98.890 Other specified postprocedural states (principal); M79.671 Pain in right foot; Q66.221 Congenital metatarsus adductus, right foot; Q66.222 Congenital metatarsus adductus, left foot | CPT/HCPCS: 73630; 99213 ==

== ENCOUNTER 2024-05-16 08:39 | Outpatient (CLI) | payer MEDICARE, SELFPAY ==
--- NOTE | 2024-05-16 08:44 | MM_ITS ---
WS: [id number] SCREENING DIGITAL BREAST TOMOSYNTHESIS MAMMOGRAM WITH CAD HISTORY: SCREENING COMPARISON: 05/08/2023, 05/02/2022, 02/05/2018 Bilateral CC and MLO with tomosynthesis and synthetic mammography submitted. Computer aided detection analyzed. Breast composition: The breasts are heterogeneously dense, which may obscure small masses. Subtle area of mild distortion in the central LEFT breast seen best on the CC projection. The remaining breasts are negative. No suspicious grouping of calcifications. MM/MM [facility] tomosynthesis [id number] IMPRESSION: BI-RADS: 0 - Incomplete: Need additional imaging evaluation FOLLOW UP: Need Additional Imaging LEFT breast: Spot compression views (CC and MLO). True ML. Ultrasound to follow if abnormality persists.
== END 2024-05-16 08:40 | disposition home or self-care (01) ==
LOC: RAD 08:43
PROVIDERS: PCP Family Medicine; Visit Provider Family Medicine
DX: Z12.31 Encounter for screening mammogram for malignant neoplasm of breast (principal); R92.333 Mammographic heterogeneous density, bilateral breasts; N64.89 Other specified disorders of breast
CPT/HCPCS: 77063; 77067

== ENCOUNTER 2024-06-11 07:55 | Outpatient (CLI) | payer MEDICARE, SELFPAY ==
--- NOTE | 2024-06-11 | MM_ITS ---
WS: [id number] ADDITIONAL VIEWS LEFT MAMMOGRAM WITH DIGITAL BREAST TOMOSYNTHESIS. LEFT breast ultrasound, limited HISTORY: ABNORMAL MAMMOGRAM COMPARISON: 05/16/2024, 05/08/2023, 05/02/2022 Spot compression views LEFT breast in CC, MLO projections and true ML submitted with digital breast tomosynthesis and SM. Breast composition: The breasts are heterogeneously dense, which may obscure small masses. Minimal distortion persists only on the cc view. No distortion on the lateral and MLO view. Ultrasound will be obtained in the area of concern. There is no associated mass. No suspicious grouping of calcifications. LEFT breast ultrasound, limited. Ultrasound directed to 11, 12 and 1:00, 5-6 o'clock LEFT breast. No area of distortion or shadowing is identified in the LEFT breast at the requested clock positions. There is a tiny hypoechoic mass which may be a small complex cyst at 1:00. This does not correspond to the mammographic abnormality. MM/MM diag LT tomosynthesis [id number] IMPRESSION: BI-RADS: 2 - Benign FOLLOW UP: 1 Year Follow-up No persistent mammographic or ultrasound abnormality in the area of distortion recently described.
--- NOTE | 2024-06-11 08:02 | US_ITS ---
WS: [id number] ADDITIONAL VIEWS LEFT MAMMOGRAM WITH DIGITAL BREAST TOMOSYNTHESIS. LEFT breast ultrasound, limited HISTORY: ABNORMAL MAMMOGRAM COMPARISON: 05/16/2024, 05/08/2023, 05/02/2022 Spot compression views LEFT breast in CC, MLO projections and true ML submitted with digital breast tomosynthesis and SM. Breast composition: The breasts are heterogeneously dense, which may obscure small masses. Minimal distortion persists only on the cc view. No distortion on the lateral and MLO view. Ultrasound will be obtained in the area of concern. There is no associated mass. No suspicious grouping of calcifications. LEFT breast ultrasound, limited. Ultrasound directed to 11, 12 and 1:00, 5-6 o'clock LEFT breast. No area of distortion or shadowing is identified in the LEFT breast at the requested clock positions. There is a tiny hypoechoic mass which may be a small complex cyst at 1:00. This does not correspond to the mammographic abnormality. US/US breast LT limited* [id number] IMPRESSION: BI-RADS: 2 - Benign FOLLOW UP: 1 Year Follow-up No persistent mammographic or ultrasound abnormality in the area of distortion recently described.
== END 2024-06-11 07:56 | disposition home or self-care (01) ==
PROVIDERS: PCP Family Medicine; Visit Provider Internal Medicine
DX: R92.8 Other abnormal and inconclusive findings on diagnostic imaging of breast (principal); R92.333 Mammographic heterogeneous density, bilateral breasts
CPT/HCPCS: 76642; 77061; G0279

== ENCOUNTER → 2024-06-18 09:15 | Outpatient (BNVA) | payer MEDICARE, SELFPAY | PROVIDERS: PCP Family Medicine; Visit Provider Podiatrist Foot & Ankle Surgery | DX: M79.672 Pain in left foot (principal); Q66.221 Congenital metatarsus adductus, right foot; Q66.222 Congenital metatarsus adductus, left foot | CPT/HCPCS: 73630; 99213 ==